=== PATIENT | male | born 1995 | race Caucasian/White ===

== ENCOUNTER 2018-05-02 00:05 | Emergency (ER) | payer BC ==
[2018-05-02] MEDS ORDERED: methylPREDNISolone Sodium Succinate 125 MG/2 ML SDV IVPUSH ONE (00:38)
[2018-05-02] MEDS ORDERED: Terbutaline 1 MG/ML SDV SUBCUT ONE (00:39)
[2018-05-02] MEDS ORDERED: Albuterol/Ipratropium 3.0-0.5 MG/3 ML Neb Soln NEB ONE (00:39)
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
--- NOTE | 2018-05-03 08:23 | CR ---
Chest: Two views of the chest were obtained. Comparison: No prior study. Heart size and mediastinum are normal. Lungs are clear. Mild scoliosis is noted within the spine. Impression: 1. Mild scoliosis. 2. Nothing acute is seen on two-view chest x-ray. Diagnostic code #2
== END 2018-05-02 02:22 | disposition home or self-care (01) ==
LOC: JD.ED 00:05
DX: J45.901 Unspecified asthma with (acute) exacerbation (principal); Z91.048 Other nonmedicinal substance allergy status
CPT/HCPCS: 71046; 94640; 96372; 96374; 99285; J2930; J3105; 99284